=== PATIENT | male | born 1950 | race Caucasian/White ===

== ENCOUNTER 2022-10-29 21:40 | Inpatient (IN) | payer OTHER ==
[~2022-10-29] VITALS: Ht 182.9 cm; Wt 71.7 kg
[~2022-10-29 21:40] MED LIST: ACETAMINOPHEN325 M2 PO; ARIPIPRAZOLE5 MG PO; ARTIFICIAL TEAR1514 OU; ASPERCREME 1035.4 GM T; ELIQUIS5 M1 PO; FLEET ENEMA 13133 ML R; FLUTICASONE-SA1 EAC4 INH; GENTLE LAXATIVE10 MG R; KETOROLAC TROMET5 M3 OP; LEVOTHYROXINE75 MCG PO; METHOCARBAMOL500 M1 PO; METOPROLOL SUCC50 M1 PO; MILK OF MA400 MG/52 PO; MIRTAZAPINE15 M2 PO; MUCINEX D ER 11 EACH PO; MUCINEX ER600 MG PO; ONDANSETRON HYDR4 M1 PO; ONDANSETRON HYDR4 MG PO; SYNTHROID,LEVO75 MCG PO; VENTOLIN 02.5 MG/3 M INH; VITAMIN D325 MCG PO; Ventolin 02.5 MG/3 M INH
[2022-10-30] VITALS: BP 58/39
[2022-10-30 08:00] VITALS: BP 71/56
[2022-10-30 12:00] VITALS: BP 80/50
[2022-10-30 16:00] VITALS: BP 71/50
[2022-10-30 20:00] VITALS: BP 64/43
[2022-10-31] VITALS: BP 70/27
[2022-10-31 08:00] VITALS: BP 91/56
[2022-10-31 12:00] VITALS: BP 87/39
== END 2022-10-31 16:15 | DRG 871 ==
LOC: 4E 21:40
PROVIDERS: ADMIT Internal Medicine; ATTEND Internal Medicine
PROC: 5A0935A Assistance with Respiratory Ventilation, Less than 24 Consecutive Hours, High Flow/Velocity Cannula (ICD-10-PCS; principal; 2022-10-30)
DX: A41.9 Sepsis, unspecified organism (principal); J18.9 Pneumonia, unspecified organism; J96.01 Acute respiratory failure with hypoxia; J96.02 Acute respiratory failure with hypercapnia; E44.0 Moderate protein-calorie malnutrition; F10.29 Alcohol dependence with unspecified alcohol-induced disorder; J44.1 Chronic obstructive pulmonary disease with (acute) exacerbation; I48.20 Chronic atrial fibrillation, unspecified; J44.0 Chronic obstructive pulmonary disease with (acute) lower respiratory infection; E87.1 Hypo-osmolality and hyponatremia; C34.01 Malignant neoplasm of right main bronchus; I27.82 Chronic pulmonary embolism; Z66 Do not resuscitate; I50.9 Heart failure, unspecified; H54.8 Legal blindness, as defined in USA; D64.9 Anemia, unspecified; R73.9 Hyperglycemia, unspecified; E87.8 Other disorders of electrolyte and fluid balance, not elsewhere classified; F32.9 Major depressive disorder, single episode, unspecified; F20.9 Schizophrenia, unspecified; E03.9 Hypothyroidism, unspecified; I11.0 Hypertensive heart disease with heart failure; F17.200 Nicotine dependence, unspecified, uncomplicated; Z91.81 History of falling; Z71.6 Tobacco abuse counseling; Z51.5 Encounter for palliative care; Z68.21 Body mass index [BMI] 21.0-21.9, adult